=== PATIENT | male | born 1935 | race Caucasian/White ===

== ENCOUNTER 2018-08-31 11:50 | Inpatient (IN) ==
--- NOTE | 2018-08-31 12:02 | Emergency Department Note ---
Disposition Clinical Impression: Renal insufficiency, mild Syncope Qualifiers: Syncope type: unspecified Qualified Code(s): R55 - Syncope and collapse Disposition: Admitted As Inpatient Condition: Fair Referrals: Matthew Martinez DO [Primary Care Provider] - Forms: ED Satisfaction Letter Syncope HPI - General Chief Complaint: ED Syncope Stated Complaint: FAINTING EPISODE Time Seen by Provider: 08/31/18 11:54 Source: patient, EMS Mode of arrival: EMS Limitations: altered mental status (Dementia), physical limitation, age Nursing Notes Reviewed: Yes Vital Signs Reviewed: Yes - History of Present Illness HPI Narrative: Patient arrives by EMS with a history of a syncopal episode while sitting at the table to eat. Poorly did not fall out of his chair sustaining any injury. Ad vised that he did not respond for about 10 minutes and his breathing was shallow. He had a similar episode while standing and walking yesterday morning and was assisted to a chair and reportedly passed out for "seconds". He has not had any type of other syncope or seizure in the past. He came around relatively abruptly from his episode this morning and had some brief gagging. He has been brought in by EMS and they reported a blood pressure 160/87, 97% saturation, blood sugar 109 and that he is at his baseline mental status per family had seen. They did transmit an EKG at 11:29 AM and establish an IV in the left antecubital. EKG showed a heart rate of 74 with ventricular bigeminy. He has an axis of -19, RI interval of the 144 and a QT/QTC of 452/476. There are no acute ST or T-wave changes to suggest ischemia or infarction on my interpretation. The patient on arrival here states that he "feels alright". He denies headache, vision changes, neck or back pain. He denies chest pain, cough or shortness of breath. He is not having abdominal pain, nausea or vomiting. Denies any extremity pain or injury. Shortly after the patient's arrival family has arrived. They confirm that he had this syncopal type episode while eating and did not have any type of shaking or seizure. He did not have tongue biting or incontinence. They relate his only recent problem was constipation a week ago for which she had some GoLYTELY and is subsequently been on some Metamucil with normal bowel function. He is not having bloody or black stools. He has not had any other recent change in medicines, ill exposures or any recent fall or injury. He is full code. They indicate his current mental status is at baseline and that we would not be able to get a dependable history from him with his baseline dementia. Pt Subjective Complaint: loss of consciousness Onset (ago): Just [employer] Duration: minutes(s) (10) Prodromal Symptoms: none Witnessed: yes - by bystander Context: at rest Injuries Sustained Associated with Event: none Current Symptoms: none History: previous syncopal episode Treatments prior to arrival: IV fluids Associated trauma secondary to event: No - Related Data Home Medications Medication Instructions Recorded Confirmed Atorvastatin Calcium [Lipitor] 40 mg PO DAILY 08/23/18 08/31/18 Celecoxib [Celebrex] 200 mg PO DAILY 08/23/18 08/31/18 Donepezil [Aricept] 10 mg PO HS 08/23/18 08/31/18 Fexofenadine HCl [Allergy Relief] 180 mg PO DAILY 08/23/18 08/31/18 Metoprolol [Lopressor] 25 mg PO DAILY 08/23/18 08/31/18 Omeprazole [PriLOSEC] 20 mg PO DAILY 08/23/18 08/31/18 Quetiapine Fumarate [SEROquel] 12.5 mg PO HS 08/23/18 08/31/18 Tramadol HCl [Ultram] 50 mg PO TID PRN 08/23/18 08/31/18 Previous Rx's Medication Instructions Recorded Peg 3350/Na Sulf,Bicarb,Cl/KCl 200 ml PO Q2HR #4000 soln.recon 08/23/18 [Golytely Solution] Allergies Allergy/AdvReac Type Severity Reaction Status Date / Time codeine Allergy Dizziness Verified 08/23/18 08:24 tamsulosin [From Flomax] Allergy See Verified 08/23/18 08:24 Comments All systems ED: reviewed and negative except as stated. Past Medical History - Past Medical History Attestation: Yes The following information was validated with the patient. Source: patient, old records reviewed, obtained from family, nursing notes reviewed Medical history: Reports: arthritis, dementia, GERD, hyperlipidemia, hypertension, kidney stones, other (Parkinson's, BPH) Surgical history: Reports: knee replacement (Right), other (EGD demonstrating esophagitis) - Social History Smoking Status: Never smoker Smokeless Tobacco Status: No Alcohol use: Reports: none Drug use: Reports: none Physical Exam - General Limitations: altered mental status, age, other (Dementia) General appearance: alert, in no apparent distress - Head Head exam: atraumatic, normocephalic, normal inspection - Eye Eye exam: Present: normal appearance, PERRL, EOMI. Absent: conjunctival injection - ENT ENT exam: normal exam, normal oropharynx, mucous membranes moist - Neck Neck exam: Present: normal inspection, full ROM, trachea midline - Chest Chest inspection: Present: normal inspection, symmetric chest wall rise - Respiratory Respiratory exam: Present: normal lung sounds bilaterally. Absent: respiratory distress, wheezes, prolonged expiratory phase - Cardiovascular Cardiovascular exam: Present: regular rate, normal rhythm, normal heart sounds. Absent: tachycardia - Abdominal Exam Abdominal exam: Present: soft, Non-Tender, normal bowel sounds. Absent: tender ness, distention, guarding, rebound, rigidity - Extremities Exam Extremities exam: Present: normal inspection, full ROM, normal capillary refill. Absent: tenderness, pedal edema, calf tenderness - Expanded Lower Extremity Exam Neurovascular/Tendon exam: Present: normal capillary refill. Absent: motor deficit, sensory deficit, tendon deficit Gait: not tested/not observed - Back Exam Back exam: Present: normal inspection, full ROM. Absent: tenderness, CVA tenderness (R), CVA tenderness (L), vertebral tenderness, rashes - Neurological Exam Neurological exam: Present: alert. Absent: oriented X3, motor sensory deficit - Psychiatric Psychiatric exam: Present: normal affect, normal mood. Absent: agitated, anxious - Skin Skin exam: Present: warm, dry, intact, normal color. Absent: rash, cyanosis, diaphoresis, pallor Course Course Narrative: 1235: Patient's EKG, chest x-ray, CBC and coagulation studies have been discussed with Dr. Siegel. With his presentation of significant syncopal episode with prolonged loss of consciousness and documented dysrhythmia by EMS EKG, he is in agreement with observing the patient this facility, providing the remainder of his chemistries returned without other acute abnormality requiring transfer. We are awaiting return of his laboratory at this time with plan for further inpatient observation. Vital Signs Temperature 97.7 F 08/31/18 11:54 Pulse Rate 60 08/31/18 11:54 Respiratory Rate 16 08/31/18 11:54 Blood Pressure 163/82 08/31/18 11:54 O2 Sat by Pulse Oximetry 98 08/31/18 11:54 Temperature 97.7 F 08/31/18 11:54 Pulse Rate 56 08/31/18 12:30 Respiratory Rate 16 08/31/18 12:30 Blood Pressure 154/82 08/31/18 12:30 O2 Sat by Pulse Oximetry 95 08/31/18 12:30 Oxygen Delivery Oxygen Delivery Room Air Syncope - Differential Diagnosis Likely: syncope due to orthostatic hypotension, vasovagal syncope, dehydr ation/metabolic disorder. Unlikely: trauma secondary to event - Medical Records Medical records reviewed: Yes I reviewed the patient's medical records. - Lab Data Lab results reviewed: Yes I reviewed the patient's lab results. Result diagrams: 08/31/18 12:14 08/31/18 12:14 Lab Results 08/31/18 08/31/18 08/31/18 Range/Units 12:14 12:14 12:14 WBC 5.4 (4.3-11.1) K/mcL RBC 4.04 L (4.19-5.50) M/mcL Hgb 13.0 (12.9-16.9) g/dL Hct 39.4 (37.5-50.1) % MCV 97.5 (83.0-100.0) fL MCH 32.2 (28.0-33.3) pg MCHC 33.0 (31.6-35.5) g/dL RDW 12.3 (11.5-14.5) % Plt Count 83 L (140-400) K/mcL MPV 12.1 (9.4-12.4) fL Immature Gran % 0.4 (0-4) % Seg Neutrophils % 72.4 % Lymphocytes % 17.0 % Monocytes % 8.5 % Eosinophils % 1.3 % Basophils % 0.4 % Neutrophils # 3.9 (1.6-8.9) K/mcL Lymphocytes # 0.9 (0.6-4.6) K/mcL Monocytes # 0.5 (0.0-1.3) K/mcL Eosinophils # 0.1 (0.0-0.6) K/mcL Basophils # 0.0 (0.0-0.2) K/mcL PT 12.5 H (9.4-12.1) Seconds INR 1.1 APTT 29.5 (26.0-36.0) Seconds Sodium 140 (136-145) mEq/L Potassium 4.0 (3.5-5.1) mEq/L Chloride 102 (98-107) mEq/L Carbon Dioxide 33 H (23-29) mEq/L BUN 21 (8-23) mg/dL Creatinine 1.55 H (0.70-1.30) mg/dL Est GFR ( Amer) 52 L (> 60) Est GFR (Non-Af Amer) 43 L (> 60) BUN/Creatinine Ratio 14 (6-26) Glucose 98 (70-105) mg/dL Calculated Osmolality 293 (280-300) Calcium 9.0 (8.6-10.3) mg/dL Total Bilirubin 1.2 H (0.3-1.0) mg/dL AST 8 L (13-39) Units/L ALT < 3 L (7-52) Units/L Alkaline Phosphatase 86 (34-104) Units/L Troponin I < 0.03 (< 0.04) ng/mL Serum Total Protein 6.0 L (6.4-8.9) g/dL Albumin 3.8 (3.5-5.7) g/dL Globulin 2.2 L (2.4-3.5) g/dL Albumin/Globulin Ratio 1.7 (1.1-2.2) - Radiology Data Radiology results reviewed: Yes I reviewed the patient's radiology results. Single view chest x-ray is performed. This does not demonstrate evidence for infiltrate, effusion, pneumothorax, foreign body or heart failure. The cardiac silhouette is normal. I do not see abnormality to the osseous structures of the chest. This is on my interpretation. Impressions Chest X-Ray 08/31/18 11:54 IMPRESSION: No convincing acute cardiopulmonary abnormality. D/ / Nemesio Almeida MD / Nemesio Almeida MD Interpreting Provider: Nemesio Almeida MD - EKG Data EKG attestation: Yes I reviewed and interpreted this EKG. EKG shows normal: sinus rhythm, axis (-24), intervals, QRS complexes, ST-T waves Rate: normal (61) Interpretation: no acute changes, unchanged when compared to prior tracing (date) (02/13/2013), other (Patient has significant baseline artifact with his underlying parkinsonism.)
[2018-08-31 12:20] LABS: Basophils % 0.4 %; Eosinophils # 0.1 K/mcL (0.0-0.6); Eosinophils % 1.3 %; Hematocrit 39.4 % (37.5-50.1); Immature Granulocytes % 0.4 % (0-4); Lymphocytes # 0.9 K/mcL (0.6-4.6); Mean Corpuscular Hemoglobin 32.2 pg (28.0-33.3); Mean Corpuscular Volume 97.5 fL (83.0-100.0); Mean Platelet Volume 12.1 fL (9.4-12.4); Monocytes # 0.5 K/mcL (0.0-1.3); Monocytes % 8.5 %; Neutrophils # 3.9 K/mcL (1.6-8.9); Red Blood Count 4.04 M/mcL (4.19-5.50); Red Cell Distribution Width 12.3 % (11.5-14.5); Segmented Neutrophils % 72.4 %
[2018-08-31 12:22] LABS: Platelet Count 83 K/mcL (140-400)
[2018-08-31 12:29] LABS: INR 1.1; Prothrombin Time 12.5 Seconds (9.4-12.1)
[2018-08-31 12:32] LABS: Activated Partial Thrombo Time 29.5 Seconds (26.0-36.0)
[2018-08-31 12:39] LABS: Alanine Aminotransferase < 3 Units/L (7-52); Albumin 3.8 g/dL (3.5-5.7); Albumin/Globulin Ratio 1.7 (1.1-2.2); Alkaline Phosphatase 86 Units/L (34-104); Aspartate Amino Transferase 8 Units/L (13-39); BUN/Creatinine Ratio 14 (6-26); Bilirubin,Total 1.2 mg/dL (0.3-1.0); Blood Urea Nitrogen 21 mg/dL (8-23); Carbon Dioxide 33 mEq/L (23-29); Chloride 102 mEq/L (98-107); Globulin 2.2 g/dL (2.4-3.5); Glucose 98 mg/dL (70-105); Osmolality,Calculated 293 (280-300); Sodium 140 mEq/L (136-145); eGFR For Non-African Americans 43 (> 60)
[2018-08-31 12:43] LABS: Troponin I < 0.03 ng/mL (< 0.04)
[2018-08-31] MEDS ORDERED: 0.9 % Sodium Chloride 1,000 ML IVC SCH ×2 (12:45→14:07)
[2018-08-31] MEDS ORDERED: traMADol 50 MG TABLET PO PRN (14:07)
[2018-08-31] MEDS ORDERED: Naloxone 0.4 MG/ML INJ IVP PRN (14:07)
[2018-08-31] MEDS ORDERED: Acetaminophen 325 MG TABLET PO PRN (14:07)
[2018-08-31] MEDS ORDERED: Ibuprofen 400 MG TABLET PO PRN (14:07)
--- NOTE | 2018-08-31 14:52 | Electrocardiograph Report ---
[place] [id number] Test Date: 2018-08-31 Pat Name: Anton cMintosh Department: EDP-14 Room: [facility] Gender: M [employer]: : 1935 Requested By: Fernando Lopez Order Number: [id number] Reading MD: Gerald Hatfield Measurements Intervals [place] Rate: 61 P: 0 NV: 48 QRS: -24 QRSD: 111 T: 64 QT: 463 QTc: 467 Interpretive Statements Sinus rhythm Short NV interval Borderline left axis deviation Possible anteroseptal infarct, old Electronically Signed On 08-31-2018 14:51:17 EST by Gerald Hatfield
--- NOTE | 2018-08-31 15:46 | Internal Med History&Physical ---
Date of Encounter: 08/31/18 Time of Encounter: 15:10 Assessment and Plan (1) Syncope Current visit: Yes Status: Acute He has been admitted to [facility] floor with telemetry. Echocardiogram will be done to further evaluate. Qualifiers: Syncope type: unspecified Qualified Code(s): R55 - Syncope and collapse (2) Parkinsons disease Current visit: Yes Status: Chronic Continue Sinemet. (3) Dementia Current visit: Yes Status: Chronic Continue Aricept and Seroquel Qualifiers: Dementia type: Alzheimer's disease Alzheimer's disease onset: late-onset Dementia behavioral disturbance: with behavioral disturbance Qualified Code(s): G30.1 - Alzheimer's disease with late onset; F02.81 - Dementia in other diseases classified elsewhere with behavioral disturbance (4) Weight loss Current visit: Yes Status: Acute Check TSH and CT of abdomen and pelvis to further evaluate. (5) Renal insufficiency, mild Current visit: Yes Status: Acute Hold Celebrex and give IV fluids. Recheck labs in a.m. Internal Medicine - H&P: HPI Chief complaint: Syncope Admitted From: Emergency Dept Plans for Post Hospital Care: Home History of present illness: Mr. Mcintosh is a 83 year old male who was brought to emergency room after he had a syncopal episode while sitting at the kitchen table approximately 10 AM the day of admission. Family reports he was unconscious a few minutes and had no fall or injury. He had a syncopal episode the previous day while ambulating to the bathroom. There was no fall or injury associated. His daughter states he had an episode of "shaking" prior to complete loss of consciousness yesterday. Family also reports he has had a few episodes of "vomiting clear liquid" intermittently and increased constipation the past few weeks. He was evaluated in emergency room and admitted to [facility] floor for ongoing care needs. Neurologic history is pertinent for dementia diagnosed approximately 3 years ago and Parkinson's disease diagnosed approximately one year ago. There have been no large distribution strokes or seizures. Cardiovascular history is significant for hypertension prior to weight loss. There is no known DC heart failure DVT or pulmonary embolus. Past Med Surg Social Fam HX - Past Medical History Medical history: arthritis, dementia, GERD, hyperlipidemia, hypertension, kidney stones, other (Parkinson's, BPH) Additional medical history: PARKINSON'S DZ Psychiatric history: other - Past Surgical History Surgical History: knee replacement (Right), other (EGD demonstrating esophagitis) Additional surgical history: Right knee - Social History Smoking Status: Never smoker Smokeless Tobacco Status: No Alcohol use: none Drug use: none Internal Medicine - H&P: Meds Atorvastatin Calcium [Lipitor] 40 mg PO DAILY 08/23/18 [History] Celecoxib [Celebrex] 200 mg PO DAILY 08/23/18 [History] Donepezil [Aricept] 10 mg PO HS 08/23/18 [History] Fexofenadine HCl [Allergy Relief] 180 mg PO DAILY 08/23/18 [History] Metoprolol [Lopressor] 25 mg PO DAILY 08/23/18 [History] Omeprazole [PriLOSEC] 20 mg PO DAILY 08/23/18 [History] Peg 3350/Na Sulf,Bicarb,Cl/KCl [Golytely Solution] 200 ml PO Q2HR #4000 soln.recon 08/23/18 [Rx] Quetiapine Fumarate [SEROquel] 12.5 mg PO HS 08/23/18 [History] Tramadol HCl [Ultram] 50 mg PO TID PRN 08/23/18 [History] Allergy/AdvReac Type Severity Reaction Status Date / Time codeine Allergy Dizziness Verified 08/23/18 08:24 tamsulosin [From Flomax] Allergy See Verified 08/23/18 08:24 Comments All Systems PM: A 10-system review of systems was performed and is negative for pertinent findings except as documented above in the HPI. Review of systems: Gen.: His weight has decreased from 180 pounds 2-3 years ago to present weight of ~145 pounds, unintentionally Cardiovascular: As per history of present illness Respiratory: He is a lifelong nonsmoker and has no known chronic lung disease GI: He has no known disorders of liver gallbladder or exocrine pancreas : He had kidney stones approximately 10 years ago without recurrence. He has BPH. There are no other known kidney or bladder disorders. Neurologic: As per history of present illness Endocrine: There is no known diabetes thyroid disease or hyperlipidemia Hematology/oncology: There is no history of blood disorders internal malignancie s or anemia Psychiatric: No known anxiety depression or other mental health issues [place] skeletal: He has DJD but no known gout or other bone joint or muscle disorders. - Constitutional Vitals: Temp Pulse Resp BP Pulse Ox 97.7 F 60 16 161/77 97 08/31/18 11:54 08/31/18 13:21 08/31/18 13:21 08/31/18 13:21 08/31/18 13:21 Exam: Gen.: He is a well-developed well-nourished male lying in bed who appears in no acute distress HEENT: Head is atraumatic and normocephalic. Eyes: EOMI. There is no scleral icterus. Mouth: Mucosa is moist. Neck: Supple and nontender. There is no thyromegaly or adenopathy noted. Heart: Regular without murmurs gallops or ectopics Lungs: No wheezes or crackles are heard. Abdomen: Soft and nontender. No masses or guarding are noted. Extremities: He is wearing shoes and socks which I did not remove. There is no pitting edema of his ankles. He has DJD changes of his hands. Neurologic: Mental status: He is awake but minimally talkative. He follows most commands. Cranial nerves: Smile is symmetric. Forehead wrinkles bilaterally. Tongue protrudes midline. EOMI. Motor: There is no pronator drift. Cerebellar: Finger to nose is intact bilaterally. Skin: Warm and dry. He has multiple scars on his skin from skin cancer removal. Internal Med - H&P Results - Labs CBC & Chem 7: 08/31/18 12:14 08/31/18 12:14 Labs: Short CBC 08/31/18 Range/Units 12:14 WBC 5.4 (4.3-11.1) K/mcL Hgb 13.0 (12.9-16.9) g/dL Hct 39.4 (37.5-50.1) % Plt Count 83 L (140-400) K/mcL Neutrophils # 3.9 (1.6-8.9) K/mcL BMP 08/31/18 12:14 Sodium 140 Potassium 4.0 Chloride 102 Carbon Dioxide 33 H BUN 21 Creatinine 1.55 H Glucose 98 Calcium 9.0 Cardiac Enzymes 08/31/18 Range/Units 12:14 Troponin I < 0.03 (< 0.04) ng/mL Liver Function 08/31/18 Range/Units 12:14 Total Bilirubin 1.2 H (0.3-1.0) mg/dL AST 8 L (13-39) Units/L ALT < 3 L (7-52) Units/L Alkaline Phosphatase 86 (34-104) Units/L Albumin 3.8 (3.5-5.7) g/dL - Impressions ITS Impressions Chest X-Ray 08/31/18 11:54 IMPRESSION: No convincing acute cardiopulmonary abnormality. D/ / Nemesio Almeida MD / Nemesio Almeida MD Interpreting Provider: Nemesio Almeida MD
[2018-08-31] MEDS: 0.9 % Sodium Chloride 1,000 ML IVC SCH (17:11)
[2018-08-31] MEDS: Carbidopa/Levodopa 25/100 TABLET PO SCH (20:38)
[2018-09-01] MEDS: 0.9 % Sodium Chloride 1,000 ML IVC SCH ×2 (05:26→18:13)
[2018-09-01] MEDS: Carbidopa/Levodopa 25/100 TABLET PO SCH ×3 (08:54→20:43)
[2018-09-01] MEDS ORDERED: Loratadine 10 MG TABLET PO SCH (09:00)
[2018-09-01 09:38] LABS: Basophils % 0.6 %; Eosinophils # 0.1 K/mcL (0.0-0.6); Eosinophils % 1.7 %; Hematocrit 37.2 % (37.5-50.1); Hemoglobin 12.5 g/dL (12.9-16.9); Immature Granulocytes % 0.2 % (0-4); Lymphocytes # 1.3 K/mcL (0.6-4.6); Lymphocytes % 20.1 %; Mean Corpuscular HGB Conc 33.6 g/dL (31.6-35.5); Mean Corpuscular Hemoglobin 32.6 pg (28.0-33.3); Mean Corpuscular Volume 96.9 fL (83.0-100.0); Mean Platelet Volume 13.2 fL (9.4-12.4); Monocytes # 0.5 K/mcL (0.0-1.3); Monocytes % 7.6 %; Neutrophils # 4.5 K/mcL (1.6-8.9); Red Blood Count 3.84 M/mcL (4.19-5.50); Red Cell Distribution Width 12.3 % (11.5-14.5); Segmented Neutrophils % 69.8 %
[2018-09-01 09:41] LABS: Platelet Count 88 K/mcL (140-400)
[2018-09-01 10:16] LABS: BUN/Creatinine Ratio 13 (6-26); Blood Urea Nitrogen 17 mg/dL (8-23); Calcium 8.6 mg/dL (8.6-10.3); Carbon Dioxide 31 mEq/L (23-29); Chloride 105 mEq/L (98-107); Glucose 74 mg/dL (70-105); Osmolality,Calculated 290 (280-300); Sodium 140 mEq/L (136-145); eGFR For Non-African Americans 55 (> 60)
[2018-09-01 10:17] LABS: Chol/HDL Ratio 2.8 (0-4.9)
[2018-09-01 10:18] LABS: Thyroid Stimulating Hormone 0.922 mcIU/mL (0.340-5.600)
--- NOTE | 2018-09-01 11:02 | Internal Med Progress Note ---
Date of Encounter: 09/01/18 Time of Encounter: 10:50 - Assessment and plan (1) Syncope Current Visit: Yes Status: Acute Assessment and plan: September 01. Echocardiogram report pending. Suspect syncope/near-syncope due at least in part to orthostatic hypotension. Continue IV fluids and remain off Lopressor. Qualifiers: Syncope type: unspecified Qualified Code(s): R55 - Syncope and collapse (2) Parkinsons disease Current Visit: Yes Status: Chronic Assessment and plan: September 01. Continue Sinemet (3) Dementia Current Visit: Yes Status: Chronic Assessment and plan: September 01. Continue Aricept and Seroquel Qualifiers: Dementia type: Alzheimer's disease Alzheimer's disease onset: late-onset Dementia behavioral disturbance: with behavioral disturbance Qualified Code(s): G30.1 - Alzheimer's disease with late onset; F02.81 - Dementia in other diseases classified elsewhere with behavioral disturbance (4) Weight loss Current Visit: Yes Status: Acute Assessment and plan: September 01. TSH normal. CT of abdomen pelvis unremarkable for worrisome pathology. (5) Renal insufficiency, mild Current Visit: Yes Status: Acute Assessment and plan: September 01. BUN and creatinine improved to 17 and 1.26 respectively with estimated GFR 55. Continue IV fluids and monitor labs. (6) Orthostatic hypotension Current Visit: Yes Status: Acute Assessment and plan: September 01. Orthostatic blood pressure results showed 177/81 lying, 98/62 sitting, and 72/50 standing. Lopressor has been discontinued and IV fluids will continue. Recheck in a.m. (7) Hyperlipidemia Current Visit: Yes Status: Chronic Assessment and plan: September 01. Lipid profile showed triglycerides 86, cholesterol 86, LDL 38, HDL 31, and total/HDL ratio of 2.8. Discontinue atorvastatin. Qualifiers: Hyperlipidemia type: unspecified Qualified Code(s): E78.5 - Hyperlipidemia, unspecified - Subjective Interval history: September 01. No new problems have arisen. - Constitutional Vitals: Temp Pulse Resp BP Pulse Ox 98.7 F 90 18 168/72 94 09/01/18 10:34 09/01/18 10:34 09/01/18 10:34 09/01/18 10:34 09/01/18 10:34 Exam: He is sleeping comfortably in bed and appears in no acute distress. I reviewed his medications and lab results. I discussed orthostatic blood pressure results with his daughters. Internal Medicine: Result - Labs CBC & Chem 7: 09/01/18 09:06 09/01/18 09:06 Labs: Short CBC 08/31/18 09/01/18 Range/Units 12:14 09:06 WBC 5.4 6.4 (4.3-11.1) K/mcL Hgb 13.0 12.5 L (12.9-16.9) g/dL Hct 39.4 37.2 L (37.5-50.1) % Plt Count 83 L 88 L (140-400) K/mcL Neutrophils # 3.9 4.5 (1.6-8.9) K/mcL BMP 08/31/18 09/01/18 12:14 09:06 Sodium 140 140 Potassium 4.0 4.0 Chloride 102 105 Carbon Dioxide 33 H 31 H BUN 21 17 Creatinine 1.55 H 1.26 Glucose 98 74 Calcium 9.0 8.6 Cardiac Enzymes 08/31/18 Range/Units 12:14 Troponin I < 0.03 (< 0.04) ng/mL Liver Function 08/31/18 Range/Units 12:14 Total Bilirubin 1.2 H (0.3-1.0) mg/dL AST 8 L (13-39) Units/L ALT < 3 L (7-52) Units/L Alkaline Phosphatase 86 (34-104) Units/L Albumin 3.8 (3.5-5.7) g/dL - ABG Interpretation ABG results: PT/INR, D-dimer PT 12.5 Seconds (9.4-12.1) H 08/31/18 12:14 - Impressions Impressions Chest X-Ray 08/31/18 11:54 IMPRESSION: No convincing acute cardiopulmonary abnormality. D/ / Nemesio Almeida MD / Nemesio Almeida MD Interpreting Provider: Nemesio Almeida MD Abdomen/Pelvis CT 08/31/18 15:35 IMPRESSION: No acute or suspicious intrathoracic or abdominopelvic process identified. Cholelithiasis. Bilateral nephrolithiasis. Prostate gland enlargement. Mild diffuse wall thickening the urinary bladder which is likely due to chronic outlet obstruction. D/ / Maranda Castelan Cha, MD / Maranda Castelan Cha, MD Interpreting Provider: Maranda Castelan Cha, MD Chest CT 08/31/18 15:35 IMPRESSION: No acute or suspicious intrathoracic or abdominopelvic process identified. Cholelithiasis. Bilateral nephrolithiasis. Prostate gland enlargement. Mild diffuse wall thickening the urinary bladder which is likely due to chronic outlet obstruction. D/ / Maranda Castelan Cha, MD / Maranda Castelan Cha, MD Interpreting Provider: Maranda Castelan Cha, MD - VTE Documentation of Mechanical Device: Graduated compression elastic hosiery Consult Discharge Plan - Plan Referrals: Matthew Martinez DO [Primary Care Provider] - 1 week
[2018-09-02 05:50] LABS: Basophils % 0.4 %; Eosinophils # 0.1 K/mcL (0.0-0.6); Eosinophils % 2.3 %; Hemoglobin 11.5 g/dL (12.9-16.9); Immature Granulocytes % 0.2 % (0-4); Lymphocytes # 1.2 K/mcL (0.6-4.6); Lymphocytes % 23.4 %; Mean Corpuscular HGB Conc 33.8 g/dL (31.6-35.5); Mean Corpuscular Hemoglobin 32.7 pg (28.0-33.3); Mean Corpuscular Volume 96.6 fL (83.0-100.0); Mean Platelet Volume 12.9 fL (9.4-12.4); Monocytes # 0.4 K/mcL (0.0-1.3); Neutrophils # 3.5 K/mcL (1.6-8.9); Red Blood Count 3.52 M/mcL (4.19-5.50); Red Cell Distribution Width 12.2 % (11.5-14.5); Segmented Neutrophils % 65.7 %
[2018-09-02] MEDS ORDERED: *HR* Enoxaparin 40 MG/0.4 ML SYRINGE SQ SCH (06:00)
[2018-09-02 06:06] LABS: BUN/Creatinine Ratio 14 (6-26); Blood Urea Nitrogen 15 mg/dL (8-23); Calcium 8.3 mg/dL (8.6-10.3); Carbon Dioxide 28 mEq/L (23-29); Chloride 106 mEq/L (98-107); Glucose 74 mg/dL (70-105); Osmolality,Calculated 285 (280-300); Potassium 3.6 mEq/L (3.5-5.1); Sodium 138 mEq/L (136-145); eGFR For Non-African Americans > 60 (> 60)
[2018-09-02 06:26] LABS: Platelet Count 77 K/mcL (140-400)
[2018-09-02] MEDS: 0.9 % Sodium Chloride 1,000 ML IVC SCH (06:27)
--- NOTE | 2018-09-02 08:54 | Discharge Summary ---
Date of Encounter: 09/02/18 Time of Encounter: 08:45 - Discharge Diagnosis (1) Syncope Priority: Primary Status: Acute Qualifiers: Syncope type: unspecified Qualified Code(s): R55 - Syncope and collapse (2) Parkinsons disease Priority: Secondary Status: Chronic (3) Dementia Priority: Secondary Status: Chronic Qualifiers: Dementia type: Alzheimer's disease Alzheimer's disease onset: late-onset Dementia behavioral disturbance: with behavioral disturbance Qualified Code(s): G30.1 - Alzheimer's disease with late onset; F02.81 - Dementia in other diseases classified elsewhere with behavioral disturbance (4) Weight loss Priority: Secondary Status: Acute (5) Renal insufficiency, mild Priority: Secondary Status: Resolved (6) Orthostatic hypotension Priority: Secondary Status: Acute (7) Hyperlipidemia Priority: Secondary Status: Chronic Qualifiers: Hyperlipidemia type: unspecified Qualified Code(s): E78.5 - Hyperlipidemia, unspecified Hospital course: Mr. Mcintosh is a 83 year old male who was brought to emergency room after he had a syncopal episode while sitting at the kitchen table approximately 10 AM the day of admission. Family reports he was unconscious a few minutes and had no fall or injury. He had a syncopal episode the previous day while ambulating to the bathroom. There was no fall or injury associated. His daughter states he had an episode of "shaking" prior to complete loss of consciousness yesterday. Family also reports he has had a few episodes of "vomiting clear liquid" intermittently and increased constipation the past few weeks. He was evaluated in emergency room and admitted to [facility] for ongoing care needs. Initial orders were written by the emergency room physician. I saw him on August 31 and performed a history and physical. He had no further syncopal or near syncopal episodes during hospitalization. Echocardiogram showed LVEF of 60-65%. There was mild diastolic dysfunction with E/A ratio of 0.8. The interventricular septum thickness was significantly elevated at 2.0 cm. Posterior wall thickness was normal at 0.8 cm. There was LAE at 4.60 cm. Moderate mitral regurgitation was reported. IV fluids were given and NSAIDs discontinued. BUN and creatinine improved to 15 and 1.05 respectively with estimated GFR greater than 60. He will remain off NSAIDs at discharge. Lipid profile showed triglycerides 86, cholesterol 86, LDL 38, HDL 31, and total/HDL ratio of 2.8. Atorvastatin was discontinued. B12 and TSH returned normal at 320 and 0.922 respectively. Orthostatic vital signs on day of discharge showed blood pressure lying 78/51 and sitting 82/54. He was asymptomatic. He will be started on Florinef 0.1 mg daily. He will be discharged home and follow with his PCP Dr. Martinez within 1 week. - Time Spent with Patient Total time spent providing and/or coordinating discharge services: - Discharge Medications Prescriptions: Fludrocortisone Acetate [Florinef] 0.1 mg PO DAILY #30 tablet Home Medications: Donepezil [Aricept] 10 mg PO HS 08/23/18 [History] Peg 3350/Na Sulf,Bicarb,Cl/KCl [Golytely Solution] 200 ml PO Q2HR #4000 soln.recon 08/23/18 [Rx] Quetiapine Fumarate [Seroquel] 12.5 mg PO HS 08/23/18 [History] Tramadol HCl [Ultram] 50 mg PO TID PRN 08/23/18 [History] Fludrocortisone Acetate [Florinef] 0.1 mg PO DAILY #30 tablet 09/02/18 [Rx] Omeprazole [PriLOSEC] 20 mg PO DAILY PRN #0 09/02/18 [Rx] Allergies/Adverse Reactions: Allergy/AdvReac Type Severity Reaction Status Date / Time codeine Allergy Dizziness Verified 08/23/18 08:24 tamsulosin [From Flomax] Allergy See Verified 08/23/18 08:24 Comments Date of admission: 09/01/18 11:08 Primary care physician: Matthew Martinez DO Consults: 08/31/18 16:56 Consult to Typewriter Ribbon Winder [CONS] Routine Reason for SW Consult: possible need for home health - Constitutional Vitals: Temp Pulse Resp BP Pulse Ox 97.5 F L 71 16 134/70 94 09/02/18 06:21 09/02/18 06:21 09/02/18 06:21 09/02/18 06:21 09/02/18 06:21 - Patient Status Disposition: Home, Self-Care Condition: Fair - Discharge Instructions Follow Up With: Matthew Martinez DO [Primary Care Provider] - 1 week - Diet and Activity Activity: resume usual activities as tolerated Diet: advance to your usual diet - VTE Documentation of Mechanical Device: Graduated compression elastic hosiery
[2018-09-02] MEDS: Carbidopa/Levodopa 25/100 TABLET PO SCH (08:57)
[2018-09-02 09:42] VITALS: BP 78/51
--- NOTE | 2018-09-03 08:09 | Physician Discharge Referral ---
Home Health/Hosp Referral Info Transfer to: Home Health Attending Provider: Robbin Provider in Charge Post Discharge: PCP (Juan) - Diagnosis (1) Syncope Priority: Primary Status: Acute (2) Parkinsons disease Priority: Secondary Status: Chronic (3) Dementia Priority: Secondary Status: Chronic (4) Weight loss Priority: Secondary Status: Acute (5) Renal insufficiency, mild Priority: Secondary Status: Resolved (6) Orthostatic hypotension Priority: Secondary Status: Acute (7) Hyperlipidemia Priority: Secondary Status: Chronic - Respiratory Orders Smoking Cessation: Smoking cessation has been advised. For more information, call the [place] Tobacco Quit Line at 9-837-VFJK-NOW. - Diet/Nutrition Diet/Nutrition Orders: Regular - Activity Activity Orders: Walker - Services Needed Following services are medically necessary services: Nursing, Home Health Aide, Physical Therapy, Occupational Therapy - Transfer Medications Prescriptions: Fludrocortisone Acetate [Florinef] 0.1 mg PO DAILY #30 tablet Home Medications: Donepezil [Aricept] 10 mg PO HS 08/23/18 [History] Peg 3350/Na Sulf,Bicarb,Cl/KCl [Golytely Solution] 200 ml PO Q2HR #4000 soln.recon 08/23/18 [Rx] Quetiapine Fumarate [Seroquel] 12.5 mg PO HS 08/23/18 [History] Tramadol HCl [Ultram] 50 mg PO TID PRN 08/23/18 [History] Fludrocortisone Acetate [Florinef] 0.1 mg PO DAILY #30 tablet 09/02/18 [Rx] Omeprazole [PriLOSEC] 20 mg PO DAILY PRN #0 09/02/18 [Rx] Allergies/Adverse Reactions: Allergy/AdvReac Type Severity Reaction Status Date / Time codeine Allergy Dizziness Verified 08/23/18 08:24 tamsulosin [From Flomax] Allergy See Verified 08/23/18 08:24 Comments Certification: Further, I certify that my clinical findings support that this patient is homebound (i.e. absences from home require considerable and taxing effort and are for medical reasons or scientologist services or infrequently or short duration when for other reasons) because: Homebound Reason: Leaving home requires considerable and taxing effort due to condition (Advanced dementia, Parkinson's disease) Attestation: My signature below is to certify that this patient is under my care and that I, or nurse practitioner, or a physician's benefits assistant working with me, has a [id number] encounter with this patient.
== END 2018-09-02 11:12 | disposition home or self-care (01) | DRG 312 ==
LOC: INPPIK 11:50 → EMEROOPIK 11:50 → INPPIK 13:33
PROVIDERS: ADMIT Internal Medicine; ATTEND Internal Medicine

== ENCOUNTER 2018-09-26 15:45 | Observation (INO) ==
--- NOTE | 2018-09-26 15:50 | Emergency Department Note ---
Disposition Clinical Impression: Orthostatic hypotension, Failure to thrive, Dehydration Disposition: Admitted As Inpatient Condition: Good General Adult HPI - General Chief complaint: ED General Medical Stated complaint: Failure to Thrive Time Seen by Provider: 09/26/18 15:45 Source: patient Mode of arrival: ambulatory Limitations: no limitations Nursing Notes Reviewed: Yes Vital Signs Reviewed: Yes - History of Present Illness HPI Narrative: Patient is not been eating or drinking regularly according to the family and now has been passing out when he stands up. He denies any pain denies any nausea vomiting fevers chills chest pain or other complaints he just feels weak. Onset (ago): day(s) (off and on for a few days) Pain Scale: 0 Consistency: intermittent Improves with: nothing Worsens with: nothing Associated symptoms: Reports: other (Decreased appetite possible dehydration) Treatments Prior to Arrival: none - Related Data Home Medications Medication Instructions Recorded Confirmed Donepezil [Aricept] 10 mg PO HS 08/23/18 08/31/18 Quetiapine Fumarate [Seroquel] 12.5 mg PO HS 08/23/18 08/31/18 Tramadol HCl [Ultram] 50 mg PO TID PRN 08/23/18 08/31/18 Previous Rx's Medication Instructions Recorded Peg 3350/Na Sulf,Bicarb,Cl/KCl 200 ml PO Q2HR #4000 soln.recon 08/23/18 [Golytely Solution] Fludrocortisone Acetate [Florinef] 0.1 mg PO DAILY #30 tablet 09/02/18 Omeprazole [PriLOSEC] 20 mg PO DAILY PRN #0 09/02/18 Allergies Allergy/AdvReac Type Severity Reaction Status Date / Time codeine Allergy Dizziness Verified 08/23/18 08:24 tamsulosin [From Flomax] Allergy See Verified 08/23/18 08:24 Comments All systems ED: reviewed and negative except as stated. Review of Systems: As Per HPI Constitutional: Denies: fever, chills, weakness, weight change Eyes: Denies: eye pain, eye discharge, vision change ENT ED: Denies: ear pain, throat pain, dental pain, hearing loss, epistaxis, congestion, dysphagia Cardiovascular: Denies: chest pain, palpitations, dyspnea on exertion, edema, syncope Respiratory: Denies: cough, dyspnea, wheezes, hemoptysis, stridor Gastrointestinal: Denies: abdominal pain, nausea, vomiting, diarrhea, constipation, hematemesis, melena, hematochezia Genitourinary: Denies: urgency, dysuria, frequency, hematuria Musculoskeletal: Denies: back pain, neck pain, arthralgia, myalgia Integumentary: Denies: rash, abrasion, lesions Neurological: Denies: headache, weakness, numbness, paresthesias, confusion, abnormal gait, vertigo Psychiatric: Denies: anxiety, depression, suicidal thoughts, homicidal thoughts, auditory hallucinations, visual hallucinations Endocrine: Denies: fatigue Hematological/Lymphatic: Denies: easy bleeding, easy bruising Allergic/Immunologic: Denies: facial swelling, urticaria Past Medical History - Past Medical History Source: old records reviewed, nursing notes reviewed Medical history: Reports: arthritis, dementia, GERD, hyperlipidemia, hyperte nsion, kidney stones, other Surgical history: Reports: knee replacement, other Psychiatric history: Reports: other - Social History Smoking Status: Never smoker Smokeless Tobacco Status: No Alcohol use: Reports: none Drug use: Reports: none Physical Exam - General Limitations: no limitations General appearance: alert, in no apparent distress - Head Head exam: atraumatic, normocephalic, normal inspection - Eye Eye exam: Present: normal appearance, PERRL, EOMI - ENT ENT exam: mucous membranes dry - Neck Neck exam: Present: normal inspection, full ROM, trachea midline - Chest Chest inspection: Present: normal inspection, symmetric chest wall rise - Respiratory Respiratory exam: Present: normal lung sounds bilaterally - Cardiovascular Cardiovascular exam: Present: regular rate, normal rhythm, normal heart sounds - Abdominal Exam Abdominal exam: Present: soft, Non-Tender - Extremities Exam Extremities exam: Present: other (Poor turgor) - Neurological Exam Neurological exam: Present: alert - Psychiatric Psychiatric exam: Present: normal affect, normal mood - Skin Skin exam: Present: warm, dry, intact, other (Poor turgor) Course Vital Signs Temperature 97.9 F 09/26/18 15:46 Pulse Rate 64 09/26/18 15:46 Respiratory Rate 15 09/26/18 15:46 Blood Pressure 154/86 09/26/18 15:46 O2 Sat by Pulse Oximetry 96 09/26/18 15:46 Temperature 98.1 F 09/26/18 19:17 Pulse Rate 62 09/26/18 19:17 Respiratory Rate 17 09/26/18 19:17 Blood Pressure 135/80 09/26/18 19:17 O2 Sat by Pulse Oximetry 97 09/26/18 19:17 Oxygen Delivery Oxygen Delivery Room Air Medical Decision Making - MDM Narrative Medical decision making narrative: I reviewed the patient's medication list - Lab Data Lab results reviewed: Yes I reviewed the patient's lab results. Result diagrams: 09/26/18 16:11 09/26/18 16:11 Lab Results 09/26/18 09/26/18 09/26/18 Range/Units 16:11 16:11 16:11 WBC 4.1 L (4.3-11.1) K/mcL RBC 3.83 L (4.19-5.50) M/mcL Hgb 12.3 L (12.9-16.9) g/dL Hct 37.0 L (37.5-50.1) % MCV 96.6 (83.0-100.0) fL MCH 32.1 (28.0-33.3) pg MCHC 33.2 (31.6-35.5) g/dL RDW 12.8 (11.5-14.5) % Plt Count 78 L (140-400) K/mcL MPV 12.3 (9.4-12.4) fL Immature Gran % 0.2 (0-4) % Seg Neutrophils % 79.6 % Lymphocytes % 12.3 % Monocytes % 6.9 % Eosinophils % 0.5 % Basophils % 0.5 % Neutrophils # 3.3 (1.6-8.9) K/mcL Lymphocytes # 0.5 L (0.6-4.6) K/mcL Monocytes # 0.3 (0.0-1.3) K/mcL Eosinophils # 0.0 (0.0-0.6) K/mcL Basophils # 0.0 (0.0-0.2) K/mcL PT 13.0 H (9.4-12.1) Seconds INR 1.2 APTT 30.9 (26.0-36.0) Seconds Sodium 136 (136-145) mEq/L Potassium 3.9 (3.5-5.1) mEq/L Chloride 100 (98-107) mEq/L Carbon Dioxide 30 H (23-29) mEq/L BUN 17 (8-23) mg/dL Creatinine 1.10 (0.70-1.30) mg/dL Est GFR ( Amer) > 60 (> 60) Est GFR (Non-Af Amer) > 60 (> 60) BUN/Creatinine Ratio 15 (6-26) Glucose 182 H (70-105) mg/dL Calculated Osmolality 288 (280-300) Lactic Acid (0.5-2.2) mmol/L Calcium 8.8 (8.6-10.3) mg/dL Total Bilirubin 1.5 H (0.3-1.0) mg/dL AST 8 L (13-39) Units/L ALT < 3 L (7-52) Units/L Alkaline Phosphatase 80 (34-104) Units/L Troponin I < 0.03 (< 0.04) ng/mL Serum Total Protein 5.6 L (6.4-8.9) g/dL Albumin 3.6 (3.5-5.7) g/dL Globulin 2.0 L (2.4-3.5) g/dL Albumin/Globulin Ratio 1.8 (1.1-2.2) Urine Color (Yellow) Urine Clarity (Clear) Urine pH (5.0-8.0) pH Units Ur Specific [place] (1.010-1.025) Urine Protein (Neg-Trace) mg/dL Urine Glucose (UA) (Normal) mg/dL Urine Ketones (Negative) mg/dL Urine Blood (Negative) Urine Nitrite (Negative) Urine Bilirubin (Negative) Urine Urobilinogen (Normal) mg/dL Ur Leukocyte Esterase (Negative) Ur Culture Indicated? (NO) 09/26/18 09/26/18 Range/Units 16:11 17:00 WBC (4.3-11.1) K/mcL RBC (4.19-5.50) M/mcL Hgb (12.9-16.9) g/dL Hct (37.5-50.1) % MCV (83.0-100.0) fL MCH (28.0-33.3) pg MCHC (31.6-35.5) g/dL RDW (11.5-14.5) % Plt Count (140-400) K/mcL MPV (9.4-12.4) fL Immature Gran % (0-4) % Seg Neutrophils % % Lymphocytes % % Monocytes % % Eosinophils % % Basophils % % Neutrophils # (1.6-8.9) K/mcL Lymphocytes # (0.6-4.6) K/mcL Monocytes # (0.0-1.3) K/mcL Eosinophils # (0.0-0.6) K/mcL Basophils # (0.0-0.2) K/mcL PT (9.4-12.1) Seconds INR APTT (26.0-36.0) Seconds Sodium (136-145) mEq/L Potassium (3.5-5.1) mEq/L Chloride (98-107) mEq/L Carbon Dioxide (23-29) mEq/L BUN (8-23) mg/dL Creatinine (0.70-1.30) mg/dL Est GFR ( Amer) (> 60) Est GFR (Non-Af Amer) (> 60) BUN/Creatinine Ratio (6-26) Glucose (70-105) mg/dL Calculated Osmolality (280-300) Lactic Acid 1.3 (0.5-2.2) mmol/L Calcium (8.6-10.3) mg/dL Total Bilirubin (0.3-1.0) mg/dL AST (13-39) Units/L ALT (7-52) Units/L Alkaline Phosphatase (34-104) Units/L Troponin I (< 0.04) ng/mL Serum Total Protein (6.4-8.9) g/dL Albumin (3.5-5.7) g/dL Globulin (2.4-3.5) g/dL Albumin/Globulin Ratio (1.1-2.2) Urine Color Yellow (Yellow) Urine Clarity Clear (Clear) Urine pH 5.5 (5.0-8.0) pH Units Ur Specific [place] 1.020 (1.010-1.025) Urine Protein Negative (Neg-Trace) mg/dL Urine Glucose (UA) 250 H (Normal) mg/dL Urine Ketones Trace H (Negative) mg/dL Urine Blood Negative (Negative) Urine Nitrite Negative (Negative) Urine Bilirubin Negative (Negative) Urine Urobilinogen 4.0 H (Normal) mg/dL Ur Leukocyte Esterase Negative (Negative) Ur Culture Indicated? NO (NO) - Radiology Data Radiology results reviewed: Yes I reviewed the patient's radiology results. - EKG Data EKG #1 EKG attestation: Yes I reviewed and interpreted this EKG. EKG results narrative: EKG shows sinus rhythm heart rate of 61 bpm. UT interval 211 ms. QRS duration 112 ms. QT interval 450 QTC 454 abnormal R-wave progression is noted. R axis of -15 degrees no ischemic changes are appreciated
[2018-09-26] MEDS ORDERED: 0.9 % Sodium Chloride 1,000 ML IVC SCH (16:00)
[2018-09-26] MEDS ORDERED: 0.9 % Sodium Chloride 1,000 ML ONE (16:03)
[2018-09-26 16:18] LABS: Basophils % 0.5 %; Eosinophils % 0.5 %; Hemoglobin 12.3 g/dL (12.9-16.9); Immature Granulocytes % 0.2 % (0-4); Lymphocytes # 0.5 K/mcL (0.6-4.6); Lymphocytes % 12.3 %; Mean Corpuscular HGB Conc 33.2 g/dL (31.6-35.5); Mean Corpuscular Hemoglobin 32.1 pg (28.0-33.3); Mean Corpuscular Volume 96.6 fL (83.0-100.0); Mean Platelet Volume 12.3 fL (9.4-12.4); Monocytes # 0.3 K/mcL (0.0-1.3); Monocytes % 6.9 %; Neutrophils # 3.3 K/mcL (1.6-8.9); Platelet Count 78 K/mcL (140-400); Red Blood Count 3.83 M/mcL (4.19-5.50); Red Cell Distribution Width 12.8 % (11.5-14.5); Segmented Neutrophils % 79.6 %
[2018-09-26 16:27] LABS: INR 1.2
[2018-09-26 16:29] LABS: Activated Partial Thrombo Time 30.9 Seconds (26.0-36.0)
[2018-09-26 16:37] LABS: Troponin I < 0.03 ng/mL (< 0.04)
[2018-09-26 17:04] LABS: Alanine Aminotransferase < 3 Units/L (7-52); Albumin 3.6 g/dL (3.5-5.7); Albumin/Globulin Ratio 1.8 (1.1-2.2); Alkaline Phosphatase 80 Units/L (34-104); Aspartate Amino Transferase 8 Units/L (13-39); BUN/Creatinine Ratio 15 (6-26); Bilirubin,Total 1.5 mg/dL (0.3-1.0); Blood Urea Nitrogen 17 mg/dL (8-23); Calcium 8.8 mg/dL (8.6-10.3); Carbon Dioxide 30 mEq/L (23-29); Chloride 100 mEq/L (98-107); Glucose 182 mg/dL (70-105); Osmolality,Calculated 288 (280-300); Potassium 3.9 mEq/L (3.5-5.1); Sodium 136 mEq/L (136-145); Total Protein 5.6 g/dL (6.4-8.9); eGFR For Non-African Americans > 60 (> 60)
[2018-09-26 17:08] LABS: Bilirubin,Urine Negative (Negative); Blood,Urine Negative (Negative); Clarity,Urine Clear (Clear); Color,Urine Yellow (Yellow); Glucose,Urine (UA) 250 mg/dL (Normal); Ketones,Urine Trace mg/dL (Negative); Leukocyte Esterase,Urine Negative (Negative); Nitrite,Urine Negative (Negative); PH,Urine 5.5 pH Units (5.0-8.0); Protein,Urine Negative (Neg-Trace)
[2018-09-26] MEDS ORDERED: Naloxone 0.4 MG/ML INJ IVP PRN (18:54)
[2018-09-26] MEDS: 0.9 % Sodium Chloride 1,000 ML IVC SCH (20:29)
[2018-09-26] MEDS: traMADol 50 MG TABLET PO PRN (21:56)
[2018-09-27 07:18] LABS: BUN/Creatinine Ratio 13 (6-26); Blood Urea Nitrogen 13 mg/dL (8-23); Calcium 8.7 mg/dL (8.6-10.3); Carbon Dioxide 29 mEq/L (23-29); Chloride 104 mEq/L (98-107); Glucose 67 mg/dL (70-105); Osmolality,Calculated 288 (280-300); Potassium 3.9 mEq/L (3.5-5.1); Sodium 140 mEq/L (136-145); eGFR For Non-African Americans > 60 (> 60)
[2018-09-27] MEDS: traMADol 50 MG TABLET PO PRN ×2 (09:11→16:17)
[2018-09-27] MEDS: 0.9 % Sodium Chloride 1,000 ML IVC SCH ×4 (09:12→20:29)
--- NOTE | 2018-09-27 11:38 | Internal Med History&Physical ---
Date of Encounter: 09/27/18 Time of Encounter: 11:05 Assessment and Plan (1) Orthostatic hypotension Current visit: Yes Status: Acute IV fluids have been ordered. He will be started back on Florinef daily. (2) Anemia Current visit: Yes Status: Acute Hemoglobin was 12.3 today. Anemia testing will be ordered in a.m. Qualifiers: Anemia type: unspecified type Qualified Code(s): D64.9 - Anemia, unspecified (3) Parkinsons disease Current visit: No Status: Chronic He has minimal tremor and cogwheeling/ rigidity. Remain off medication. (4) Dementia Current visit: No Status: Chronic Continue Aricept Qualifiers: Dementia type: Alzheimer's disease Alzheimer's disease onset: late-onset Dementia behavioral disturbance: with behavioral disturbance Qualified Code(s): G30.1 - Alzheimer's disease with late onset; F02.81 - Dementia in other diseases classified elsewhere with behavioral disturbance Internal Medicine - H&P: HPI Chief complaint: Orthostatic hypotension Admitted From: Emergency Dept Plans for Post Hospital Care: Home History of present illness: Mr. Mcintosh is a 83 year old male who was brought to emergency room after family reported he had syncopal episodes when standing up. They report these have been worsening over several days. He had been instructed to decrease Florinef to MWF schedule from daily schedule prescribed at his [facility] hospital discharge in August. He was evaluated in emergency room and admitted to [facility] floor for ongoing care needs. He was hospitalized at [facility] 3-4 weeks ago with syncope. Echocardiogram showed LVEF of 60-65%. There was mild diastolic dysfunction with E/A ratio of 0.8. The interventricular septum thickness was significantly elevated at 2.0 cm. Posterior wall thickness was normal at 0.8 cm. There was LAE at 4.60 cm. Moderate mitral regurgitation was reported. He had significant orthostatic hypotension and was started on Florinef 0.1 mg daily. There is no known [place] heart failure DVT or pulmonary embolus. He had history of hypertension prior to weight loss and hypotension. Metoprolol was discontinued at time of discharge. Past Med Surg Social Fam HX - Past Medical History Medical history: arthritis, dementia, GERD, hyperlipidemia, hypertension, kidney stones, other Additional medical history: Skin Ca. Psychiatric history: other - Past Surgical History Surgical History: knee replacement, other Additional surgical history: Skin Ca. removal - Social History Smoking Status: Never smoker Smokeless Tobacco Status: No Alcohol use: none Drug use: none - Family History Brother Living Status: Hx Family Cancer: Yes (bowel Ca.) Internal Medicine - H&P: Meds Donepezil [Aricept] 10 mg PO HS 08/23/18 [History] Peg 3350/Na Sulf,Bicarb,Cl/KCl [Golytely Solution] 200 ml PO Q2HR #4000 soln.recon 08/23/18 [Rx] Quetiapine Fumarate [Seroquel] 12.5 mg PO HS 08/23/18 [History] Tramadol HCl [Ultram] 50 mg PO TID PRN 08/23/18 [History] Fludrocortisone Acetate [Florinef] 0.1 mg PO DAILY #30 tablet 09/02/18 [Rx] Omeprazole [PriLOSEC] 20 mg PO DAILY PRN #0 09/02/18 [Rx] Allergy/AdvReac Type Severity Reaction Status Date / Time codeine Allergy Dizziness Verified 08/23/18 08:24 tamsulosin [From Flomax] Allergy See Verified 08/23/18 08:24 Comments All Systems PM: A 10-system review of systems was performed and is negative for pertinent findings except as documented above in the HPI. Review of systems: Review of systems from his August 2018 [facility] hospitalization were reviewed and revised as below. Gen.: His weight has decreased from 180 pounds 2-3 years ago to present weight of ~145 pounds, unintentionally Cardiovascular: As per history of present illness Respiratory: He is a lifelong nonsmoker and has no known chronic lung disease GI: He has no known disorders of liver gallbladder or exocrine pancreas : He had kidney stones approximately 10 years ago without recurrence. He has BPH. There are no other known kidney or bladder disorders. Neurologic: He has dementia diagnosed approximately 3 years ago and Parkinson's disease diagnosed approximately one year ago. There have been no large distribution strokes or seizures. Endocrine: There is no known diabetes thyroid disease or hyperlipidemia Hematology/oncology: There is no history of blood disorders internal malignancies or anemia Psychiatric: No known anxiety depression or other mental health issues [place] skeletal: He has DJD but no known gout or other bone joint or muscle disorders. - Constitutional Vitals: Temp Pulse Resp BP Pulse Ox 98 F 61 15 176/84 97 09/27/18 06:49 09/27/18 06:49 09/27/18 06:49 09/27/18 06:49 09/27/18 06:49 Exam: Gen.: He is a well-developed well-nourished male lying in bed who appears in no acute distress. He is minimally talkative but does follow commands HEENT: Head is atraumatic and normal cephalic. Eyes: EOMI. There is no scleral icterus. Mouth: Mucosa is moist. Neck: Supple and nontender. There is no thyromegaly or adenopathy noted. Heart: Regular without murmurs gallops or ectopics Lungs: No wheezes or crackles are heard. Abdomen: Soft and nontender. No masses or guarding are noted. Extremities: There is no cyanosis edema or clubbing noted. Dorsalis pedis and posterior tibial pulses are trace to 1+ palpable bilaterally. Neurologic: He is awake and follows some commands. He is minimally talkative. Cranial nerves: Smile is symmetric. Forehead wrinkles bilaterally. Tongue protrudes midline. EOMI. Motor: There is no pronator drift. Cerebellar: Finger to nose is intact bilaterally. Skin: Warm and dry Internal Med - H&P Results - Labs CBC & Chem 7: 09/26/18 16:11 09/27/18 05:40 Labs: Short CBC 09/26/18 Range/Units 16:11 WBC 4.1 L (4.3-11.1) K/mcL Hgb 12.3 L (12.9-16.9) g/dL Hct 37.0 L (37.5-50.1) % Plt Count 78 L (140-400) K/mcL Neutrophils # 3.3 (1.6-8.9) K/mcL BMP 09/26/18 09/27/18 16:11 05:40 Sodium 136 140 Potassium 3.9 3.9 Chloride 100 104 Carbon Dioxide 30 H 29 BUN 17 13 Creatinine 1.10 1.02 Glucose 182 H 67 L Calcium 8.8 8.7 Cardiac Enzymes 09/26/18 Range/Units 16:11 Troponin I < 0.03 (< 0.04) ng/mL Liver Function 09/26/18 Range/Units 16:11 Total Bilirubin 1.5 H (0.3-1.0) mg/dL AST 8 L (13-39) Units/L ALT < 3 L (7-52) Units/L Alkaline Phosphatase 80 (34-104) Units/L Albumin 3.6 (3.5-5.7) g/dL Urine 09/26/18 Range/Units 17:00 Urine Color Yellow (Yellow) Urine Clarity Clear (Clear) Urine pH 5.5 (5.0-8.0) pH Units Ur Specific [place] 1.020 (1.010-1.025) Urine Protein Negative (Neg-Trace) mg/dL Urine Glucose (UA) 250 H (Normal) mg/dL - Impressions ITS Impressions Chest X-Ray 09/26/18 15:53 IMPRESSION: No radiographic evidence of acute cardiopulmonary process. D/ / Otis Mahan MD / Otis Mahan MD Interpreting Provider: Otis Mahan MD
[2018-09-27] MEDS ORDERED: CARBIDOPA 100 MG PO SCH (15:00)
[2018-09-27] MEDS: Carbidopa/Levodopa 25/100 TABLET PO SCH (16:16)
--- NOTE | 2018-09-27 18:44 | Electrocardiograph Report ---
[place] [id number] Test Date: 2018-09-26 Pat Name: Anton Mcintosh Department: EDP-11 Room: [facility] Gender: M Unit Control Clerk: : 1935 Requested By: Joss Call Order Number: [id number] Reading MD: Giselle Diaz Measurements Intervals [place] Rate: 61 P: 30 VA: 211 QRS: -15 QRSD: 112 T: 56 QT: 450 QTc: 454 Interpretive Statements Sinus rhythm Borderline prolonged VA interval Borderline intraventricular conduction delay Abnormal R-wave progression, early transition Electronically Signed On 09-27-2018 18:42:22 EST by Giselle Diaz
[2018-09-27] MEDS ORDERED: Carbidopa/Levodopa 25/100 TABLET PO SCH (21:00)
[2018-09-28 05:48] LABS: Basophils % 0.4 %; Eosinophils # 0.1 K/mcL (0.0-0.6); Eosinophils % 1.4 %; Hematocrit 33.7 % (37.5-50.1); Hemoglobin 11.1 g/dL (12.9-16.9); Immature Granulocytes % 0.2 % (0-4); Lymphocytes # 1.5 K/mcL (0.6-4.6); Lymphocytes % 30.5 %; Mean Corpuscular HGB Conc 32.9 g/dL (31.6-35.5); Mean Corpuscular Volume 97.1 fL (83.0-100.0); Monocytes # 0.4 K/mcL (0.0-1.3); Neutrophils # 2.9 K/mcL (1.6-8.9); Red Blood Count 3.47 M/mcL (4.19-5.50); Red Cell Distribution Width 12.5 % (11.5-14.5); Segmented Neutrophils % 59.5 %
[2018-09-28 05:53] LABS: Platelet Count 72 K/mcL (140-400)
[2018-09-28 06:16] LABS: BUN/Creatinine Ratio 15 (6-26); Blood Urea Nitrogen 15 mg/dL (8-23); Calcium 8.4 mg/dL (8.6-10.3); Carbon Dioxide 29 mEq/L (23-29); Chloride 104 mEq/L (98-107); Glucose 69 mg/dL (70-105); Osmolality,Calculated 287 (280-300); Potassium 3.6 mEq/L (3.5-5.1); Sodium 139 mEq/L (136-145); eGFR For Non-African Americans > 60 (> 60)
[2018-09-28] MEDS: 0.9 % Sodium Chloride 1,000 ML IVC SCH (06:55)
[2018-09-28] MEDS: Carbidopa/Levodopa 25/100 TABLET PO SCH (07:58)
[2018-09-28] MEDS: traMADol 50 MG TABLET PO PRN (07:58)
[2018-09-28] MEDS ORDERED: Celecoxib 100 MG CAPSULE PO SCH (09:00)
[2018-09-28 10:14] LABS: % Iron Saturation 51 % (20-55); Iron 98 mcg/dL (65-175); Transferrin 136 mg/dL (203-362)
--- NOTE | 2018-09-28 10:14 | Discharge Summary ---
Orders not resulted at time of discharge: Pending orders 09/26/18 16:11 Culture,Blood [BC] Stat 09/28/18 05:14 Basic Metabolic Panel AM 0400 Ferritin AM 0400 Folate AM 0400 Iron Profile AM 0400 Date of Encounter: 09/28/18 Time of Encounter: 10:04 - Discharge Diagnosis (1) Orthostatic hypotension Priority: Primary Status: Acute (2) Anemia Priority: Secondary Status: Acute Qualifiers: Anemia type: unspecified type Qualified Code(s): D64.9 - Anemia, unspecified (3) Parkinsons disease Priority: Secondary Status: Chronic (4) Dementia Priority: Secondary Status: Chronic Qualifiers: Dementia type: Alzheimer's disease Alzheimer's disease onset: late-onset Dementia behavioral disturbance: with behavioral disturbance Qualified Code(s): G30.1 - Alzheimer's disease with late onset; F02.81 - Dementia in other diseases classified elsewhere with behavioral disturbance Hospital course: Mr. Mcintosh is a 83 year old male who was brought to emergency room after family reported he had syncopal episodes when standing up. They report these have been worsening over several days. He had been instructed to decrease Florinef to MWF schedule from daily schedule prescribed at his [facility] hospital discharge in August. He was evaluated in emergency room and admitted to [facility] floor for ongoing care needs. Initial orders were written by the emergency room physician. I saw him on September 27 and performed a history and physical. He was started on IV fluids. Florinef was ordered daily. His blood pressure showed significant fluctuation ranging from a low of 79/51 to high of 181/86. He will continue with daily Florinef at discharge. Celebrex will be discontinued because of worsening anemia which might contribute to orthostatic hypotension. Anemia profile is pending at time of discharge. Discussions were made with family regarding longer-term care needs. They chose to return him to the home environment at this time instead of placement at SNF. There were no other new problems and on September 28 he was stable for discharge home. He will follow with his PCP Dr. Martinez within 1 week. - Time Spent with Patient Total time spent providing and/or coordinating discharge services: - Discharge Medications Home Medications: Donepezil [Aricept] 10 mg PO HS 08/23/18 [History] Peg 3350/Na Sulf,Bicarb,Cl/KCl [Golytely Solution] 200 ml PO Q2HR #4000 soln.recon 08/23/18 [Rx] Quetiapine Fumarate [Seroquel] 25 mg PO HS 08/23/18 [History] Tramadol HCl [Ultram] 50 mg PO TID PRN 08/23/18 [History] Fludrocortisone Acetate [Florinef] 0.1 mg PO DAILY #30 tablet 09/02/18 [Rx] Omeprazole [PriLOSEC] 20 mg PO DAILY PRN #0 09/02/18 [Rx] Atorvastatin [Lipitor] 40 mg PO HS 09/27/18 [History] Carbidopa/Levodopa [Carbidopa-Levodopa 25-100 Tab] 1 each PO HS 09/27/18 [History] Carbidopa/Levodopa [Carbidopa-Levodopa 25-100 Tab] 1.5 each PO 09,15 09/27/18 [History] Allergies/Adverse Reactions: Allergy/AdvReac Type Severity Reaction Status Date / Time codeine Allergy Dizziness Verified 08/23/18 08:24 tamsulosin [From Flomax] Allergy See Verified 08/23/18 08:24 Comments Date of admission: 09/26/18 18:01 Primary care physician: Matthew Martinez DO Consults: 09/26/18 20:12 Consult to Nutrition [CONS] Routine Comment: Poor oral intake Consulting Provider: NUTRITION Reason for Dietary Consult: MST Score Consult to [employer] [CONS] Routine Reason for SW Consult: Pt home alone but has family there almost 08/03; Pt has [facility] - Constitutional Vitals: Temp Pulse Resp BP Pulse Ox 97.6 F 52 14 143/69 94 09/28/18 07:12 09/28/18 07:12 09/28/18 07:12 09/28/18 07:12 09/28/18 07:12 - Patient Status Disposition: Home, Self-Care Condition: Good - Discharge Instructions Follow Up With: Matthew Martinez DO [Primary Care Provider] - 1 week - Diet and Activity Activity: resume usual activities as tolerated Diet: advance to your usual diet
[2018-09-28 10:31] LABS: Ferritin 383 ng/mL (20-250)
[2018-09-28 11:14] VITALS: BP 93/58
--- NOTE | 2018-09-28 11:45 | Physician Discharge Referral ---
Home Health/Hosp Referral Info Transfer to: Home Health Attending Provider: Robibn Provider in Charge Post Discharge: PCP Melissa) - Diagnosis (1) Orthostatic hypotension Priority: Primary Status: Acute (2) Anemia Priority: Secondary Status: Acute (3) Parkinsons disease Priority: Secondary Status: Chronic (4) Dementia Priority: Secondary Status: Chronic - Respiratory Orders Smoking Cessation: Smoking cessation has been advised. For more information, call the [place] Tobacco Quit Line at 7-482-RFKW-NOW. - Diet/Nutrition Diet/Nutrition Orders: Regular - Activity Activity Orders: Walker - Services Needed Following services are medically necessary services: Nursing, Home Health Aide, Physical Therapy, Occupational Therapy - Transfer Medications Home Medications: Donepezil [Aricept] 10 mg PO HS 08/23/18 [History] Peg 3350/Na Sulf,Bicarb,Cl/KCl [Golytely Solution] 200 ml PO Q2HR #4000 soln.recon 08/23/18 [Rx] Quetiapine Fumarate [Seroquel] 25 mg PO HS 08/23/18 [History] Tramadol HCl [Ultram] 50 mg PO TID PRN 08/23/18 [History] Fludrocortisone Acetate [Florinef] 0.1 mg PO DAILY #30 tablet 09/02/18 [Rx] Omeprazole [PriLOSEC] 20 mg PO DAILY PRN #0 09/02/18 [Rx] Atorvastatin [Lipitor] 40 mg PO HS 09/27/18 [History] Carbidopa/Levodopa [Carbidopa-Levodopa 25-100 Tab] 1 each PO HS 09/27/18 [History] Carbidopa/Levodopa [Carbidopa-Levodopa 25-100 Tab] 1.5 each PO 09,15 09/27/18 [History] Allergies/Adverse Reactions: Allergy/AdvReac Type Severity Reaction Status Date / Time codeine Allergy Dizziness Verified 08/23/18 08:24 tamsulosin [From Flomax] Allergy See Verified 08/23/18 08:24 Comments Certification: Further, I certify that my clinical findings support that this patient is homebound (i.e. absences from home require considerable and taxing effort and are for medical reasons or mandaen services or infrequently or short duration when for other reasons) because: Homebound Reason: Leaving home requires considerable and taxing effort due to condition (Dementia, orthostatic hypotension) Attestation: My signature below is to certify that this patient is under my care and that I, or nurse practitioner, or a physician's healthcare administrative assistant working with me, has a [id number] encounter with this patient.
== END 2018-09-28 12:00 | disposition home or self-care (01) ==
LOC: INPPIK 15:45 → EMEROOPIK 15:45 → INPPIK 19:08
PROVIDERS: ADMIT Internal Medicine; ATTEND Internal Medicine